=== PATIENT | male | born 1945 | race Caucasian/White ===

== ENCOUNTER 2018-12-11 08:11 | Outpatient (CLI) | payer MEDICARE, OTHER ==
--- NOTE | 2018-12-11 08:29 | RAD ---
Left shoulder 3 views HISTORY: Left shoulder pain. FINDINGS: Acromioclavicular and glenohumeral alignment are maintained. Mild osteophytosis. No acute f racture, dislocation, or aggressive osseous erosions. IMPRESSION: Very mild degenerative changes. No acute osseous abnormalities are demonstrated.
== END 2018-12-11 08:12 | disposition home or self-care (01) ==
LOC: BICRAD 08:11
DX: M25.512 Pain in left shoulder (principal); M19.012 Primary osteoarthritis, left shoulder